=== PATIENT | female | born 1985 | race Caucasian/White ===

== ENCOUNTER 2019-08-28 07:26 | Emergency (ER) | payer SELFPAY ==
[~2019-08-28] VITALS: Ht 172.7 cm; Wt 81.6 kg
--- NOTE | 2019-08-28 07:39 | NUR ---
PT CAME INTO THE ED C/O R WRIST CUT AND SWELLING "GLASS COVER FELL ON MY WRIST". PT AAOX4, VSS, BREATHING EVEN AND UNLABORED ON ROOM AIR. PUNCTURE AND SWELLING ON R WRIST NOTED. PT CONNECTED TO THE MONITOR.
[2019-08-28] MEDS ORDERED: HYDROCODONE/APAP 5/325MG 1 EACH TABLET ONE (07:48)
[2019-08-28] MEDS: HYDROCODONE/APAP 5/325MG 1 EACH TABLET PO ONE (07:53)
--- NOTE | 2019-08-28 07:56 | NUR ---
XRAY AT BEDSIDE
--- NOTE | 2019-08-28 09:04 | NUR ---
Patient discharged to home in stable condition. Written and verbal after care instructions given. Patient verbalizes understanding of instruction.
[2019-08-28 09:05] VITALS: BP 127/84
== END 2019-08-28 09:06 | disposition home or self-care (01) ==
LOC: ER 07:26
DX: S60.211A Contusion of right wrist, initial encounter (principal); S60.511A Abrasion of right hand, initial encounter; W20.8XXA Other cause of strike by thrown, projected or falling object, initial encounter; Y93.89 Activity, other specified; Y92.89 Other specified places as the place of occurrence of the external cause; Y99.8 Other external cause status
CPT/HCPCS: 29125; 73110; 99283; A6403